=== PATIENT | male | born 1940 | race Caucasian/White ===

== ENCOUNTER → 2016-12-07 | Outpatient (CLI) | payer OTHER ==
[~2016-12-07] MED LIST: AMLO10TA2 PO; ATEN25TA PO; AZIT-14 PO; LISI40TA PO; MECL25TA2 PO; METH4TAB2 PO; OMNIPAQUE 350 MG/ML, 75ML BOTTLE ONE; ONDA4TAB10 PO
== END | disposition home or self-care (01) ==
LOC: CFH 08:43
PROVIDERS: ATTEND Specialist
DX: C44.699 Other specified malignant neoplasm of skin of left upper limb, including shoulder (principal); R91.8 Other nonspecific abnormal finding of lung field
CPT/HCPCS: 71260; Q9967

== ENCOUNTER → 2017-03-02 | Outpatient (CLI) | payer OTHER ==
[~2017-03-02] MED LIST changes: -AZIT-14 PO; +AZIT250T89 PO; +DICL50TA4 PO; -OMNIPAQUE 350 MG/ML, 75ML BOTTLE ONE
== END | disposition home or self-care (01) ==
LOC: RAD 15:08
PROVIDERS: ATTEND Family Medicine
DX: J98.11 Atelectasis (principal)
CPT/HCPCS: 71020

== ENCOUNTER → 2017-04-27 | Outpatient (CLI) | payer OTHER | END | disposition home or self-care (01) | LOC: WOUND 08:46 | PROVIDERS: ATTEND Physician Assistant | DX: S61.402D Unspecified open wound of left hand, subsequent encounter (principal); C44.699 Other specified malignant neoplasm of skin of left upper limb, including shoulder; I10 Essential (primary) hypertension; Z85.118 Personal history of other malignant neoplasm of bronchus and lung; Z87.891 Personal history of nicotine dependence; X58.XXXD Exposure to other specified factors, subsequent encounter | CPT/HCPCS: G0463; WOU0463 ==

== ENCOUNTER 2017-05-13 01:32 | Emergency (ER) | payer OTHER ==
[~2017-05-13] VITALS: Ht 172.7 cm; Wt 108.8 kg
[2017-05-13 01:35] VITALS: BP 181/100
== END 2017-05-13 03:01 | disposition home or self-care (01) ==
LOC: ED 02:38
DX: Z48.817 Encounter for surgical aftercare following surgery on the skin and subcutaneous tissue (principal); C44.90 Unspecified malignant neoplasm of skin, unspecified; I10 Essential (primary) hypertension; Z92.3 Personal history of irradiation
CPT/HCPCS: 99283

== ENCOUNTER 2017-05-30 08:55 | Emergency (ER) | payer OTHER ==
[~2017-05-30] VITALS: Ht 177.8 cm; Wt 105.0 kg
[2017-05-30 09:03] VITALS: BP 143/75
[2017-05-30] MEDS ORDERED: hydrOXyzine 50MG TABLET PO STA (09:21)
== END 2017-05-30 09:44 ==
LOC: ED 09:39
DX: L27.0 Generalized skin eruption due to drugs and medicaments taken internally (principal); T37.0X5A Adverse effect of sulfonamides, initial encounter; Y92.89 Other specified places as the place of occurrence of the external cause
CPT/HCPCS: 99283

== ENCOUNTER → 2017-06-22 | Outpatient (CLI) | payer OTHER | END | disposition home or self-care (01) | LOC: CFH 13:09 | PROVIDERS: ATTEND Internal Medicine Critical Care Medicine | DX: R91.8 Other nonspecific abnormal finding of lung field (principal); I70.0 Atherosclerosis of aorta; Q25.46 Tortuous aortic arch; N28.1 Cyst of kidney, acquired; I89.8 Other specified noninfective disorders of lymphatic vessels and lymph nodes | CPT/HCPCS: 71250 ==

== ENCOUNTER → 2017-10-06 | Outpatient (CLI) | payer OTHER ==
[~2017-10-06] MED LIST changes: +DOXY100C2 PO; +OMNIPAQUE 350 MG/ML, 75ML BOTTLE ONE
== END ==
LOC: CFH 10:03
PROVIDERS: ATTEND Internal Medicine Hematology & Oncology
DX: C78.02 Secondary malignant neoplasm of left lung (principal); R91.8 Other nonspecific abnormal finding of lung field; J98.11 Atelectasis
CPT/HCPCS: 71260; Q9967

== ENCOUNTER 2018-01-03 12:46 | Emergency (ER) | payer OTHER ==
[~2018-01-03] VITALS: Ht 177.8 cm; Wt 107.0 kg
[~2018-01-03 12:46] MED LIST changes: -OMNIPAQUE 350 MG/ML, 75ML BOTTLE ONE
[2018-01-03] MEDS ORDERED: MORPHINE SULFATE 4 MG/ML, 1ML ONE (13:10)
[2018-01-03] MEDS ORDERED: SODIUM CHLORIDE FLUSH 10ML SYR IVF ONE (13:30)
[2018-01-03] MEDS ORDERED: MORPHINE SULFATE 4 MG/ML, 1ML IVPush PRN (13:30)
[2018-01-03 13:37] LABS: BASOPHILS # (AUTO) 0.03 x10^3/uL (0-0.1); BASOPHILS % (AUTO) 1 % (0-1); EOSINOPHILS # (AUTO) 0.12 x10^3/uL (0-0.4); EOSINOPHILS % (AUTO) 2 % (1-7); LYMPHOCYTES # (AUTO) 0.97 x10^3/uL (1-3.4); LYMPHOCYTES % (AUTO) 16 % (22-44); MD NO; MEAN CORPUSCULAR HEMOGLOBIN 30.2 pg (27.5-34.5); MEAN CORPUSCULAR HGB CONC 33.2 g/dL (33.2-36.2); MONOCYTES # (AUTO) 0.59 x10^3/uL (0.2-0.8); MONOCYTES % (AUTO) 10 % (2-9); NEUTROPHILS # (AUTO) 4.36 x10^3/uL (1.8-6.8); NEUTROPHILS % (AUTO) 72 % (42-75); PLATELET COUNT 177 x10^3/uL (130-400); RED BLOOD COUNT 4.97 x10^6/uL (4.38-5.82); RED CELL DISTRIBUTION WIDTH 18.2 % (9.4-14.8)
[2018-01-03 13:46] LABS: ALBUMIN 3.5 g/dL (3.4-5.0); ANION GAP 8 mmol/L (5-15); CALCIUM 8.6 mg/dL (8.5-10.1); CHLORIDE 107 mmol/L (98-107); CREATININE 0.96 mg/dL (0.7-1.3)
[2018-01-03 14:12] VITALS: BP 150/88
== END 2018-01-03 14:23 | disposition home or self-care (01) ==
LOC: ED 14:17
DX: M79.622 Pain in left upper arm (principal); R07.89 Other chest pain; M54.12 Radiculopathy, cervical region; I11.9 Hypertensive heart disease without heart failure; Z90.49 Acquired absence of other specified parts of digestive tract; M54.14 Radiculopathy, thoracic region
CPT/HCPCS: 36415; 71045; 80048; 82040; 85025; 93005; 96374

== ENCOUNTER 2018-01-27 09:53 | Day surgery (SDC) | payer OTHER ==
[~2018-01-27] VITALS: Ht 177.8 cm; Wt 109.9 kg
[2018-01-27 10:42] VITALS: BP 168/80
[2018-01-27] MEDS ORDERED: LACTATED RINGERS 1,000 ML IV SCH (10:49)
[2018-01-27] MEDS ORDERED: ACETAMINOPHEN 500 MG TABLET ONE (10:57)
[2018-01-27] MEDS ORDERED: GABAPENTIN 300 MG CAPSULE ONE (10:57)
[2018-01-27] MEDS ORDERED: ONDANSETRON ODT 8 MG ONE (10:57)
[2018-01-27] MEDS ORDERED: GABAPENTIN 300 MG CAPSULE PO ONE (11:00)
[2018-01-27] MEDS ORDERED: ACETAMINOPHEN 500 MG TABLET PO ONE (11:00)
[2018-01-27] MEDS ORDERED: ONDANSETRON ODT 8 MG PO ONE (11:00)
[2018-01-27] MEDS ORDERED: BUPIVACAINE/PF 0.5% ONE (11:02)
[2018-01-27] MEDS ORDERED: EPINEPHRINE 1 MG/ML, 1ML ONE (11:02)
[2018-01-27] MEDS ORDERED: ISOSULFAN BLUE 10 MG/ML, 5ML IV ONE (11:02)
[2018-01-27 11:31] LABS: INTERNATIONAL NORMALIZED RATIO 1.07 (0.93-1.1); PROTHROMBIN TIME 11.1 Seconds (9.6-11.5)
[2018-01-27] MEDS ORDERED: SUCCINYLCHOLINE 20 MG/ML, 10ML ONE (11:50)
[2018-01-27] MEDS ORDERED: CLINDAMYCIN 150 MG/ML, 6ML ONE (11:51)
[2018-01-27] MEDS ORDERED: FENTANYL PF 100 MCG/2ML ONE (11:52)
[2018-01-27] MEDS ORDERED: LIDOCAINE GEL 2%, 5ML ONE (11:55)
[2018-01-27] MEDS ORDERED: CEFAZOLIN 1,000 MG ONE (12:27)
[2018-01-27] MEDS ORDERED: PROPOFOL 10 MG/ML, 20ML ONE (12:27)
[2018-01-27] MEDS ORDERED: DEXAMETHASONE 4 MG/ML, 1ML ONE (12:27)
[2018-01-27] MEDS ORDERED: MEPERIDINE/PF 50 MG/ML ONE (12:27)
[2018-01-27] MEDS ORDERED: hydrALAzine 20 MG/ML, 1ML IV PRN (12:30)
[2018-01-27] MEDS ORDERED: MEPERIDINE/PF 25MG/0.5ML IVPush PRN (12:30)
[2018-01-27] MEDS ORDERED: METOPROLOL 1 MG/ML, 5ML IV PRN (12:30)
[2018-01-27] MEDS ORDERED: DIAZEPAM 5 MG/ML, 2ML IVPush PRN (12:30)
[2018-01-27] MEDS ORDERED: OXYcodone 5 MG/5 ML ORAL.SOL UDC PO PRN (12:30)
[2018-01-27] MEDS ORDERED: MIDAZOLAM 1 MG/ML, 2ML IV PRN (12:30)
[2018-01-27] MEDS ORDERED: EPHEDRINE 50 MG/ML, 1ML IM PRN (12:30)
[2018-01-27] MEDS ORDERED: ONDANSETRON ODT 8 MG PO PRN (12:30)
[2018-01-27] MEDS ORDERED: LORazepam 2 MG/ML, 1ML IVPush PRN (12:30)
[2018-01-27] MEDS ORDERED: PROMETHAZINE 25 MG/ML, 1ML IV PRN (12:30)
[2018-01-27] MEDS ORDERED: MORPHINE SULFATE 4 MG/ML, 1ML IVPush PRN (12:30)
[2018-01-27] MEDS ORDERED: PROMETHAZINE 25 MG SUPP PR PRN (12:30)
[2018-01-27] MEDS ORDERED: ALBUTEROL/IPRATROPIUM 2.5MG/0.5MG, 3 ML NPPB PRN (12:30)
[2018-01-27] MEDS ORDERED: FENTANYL PF 100 MCG/2ML IV PRN (12:30)
== END 2018-01-27 18:10 | disposition home or self-care (01) ==
LOC: OUT 09:53
PROVIDERS: ATTEND Surgery
DX: M79.89 Other specified soft tissue disorders (principal); I27.20 Pulmonary hypertension, unspecified; G47.33 Obstructive sleep apnea (adult) (pediatric); Z88.1 Allergy status to other antibiotic agents; Z88.8 Allergy status to other drugs, medicaments and biological substances; Z98.890 Other specified postprocedural states; Z87.891 Personal history of nicotine dependence
CPT/HCPCS: 21556; 36415; 85610; 88307; J0171; J0330; J1100; J2175; J2704; J3010; J3490; J7120; Q0162; J0690

== ENCOUNTER → 2018-04-11 | Outpatient (CLI) | payer OTHER | END | disposition home or self-care (01) | LOC: CFH 08:31 | PROVIDERS: ATTEND Nurse Practitioner Family | DX: R91.8 Other nonspecific abnormal finding of lung field (principal); R59.0 Localized enlarged lymph nodes; I25.10 Atherosclerotic heart disease of native coronary artery without angina pectoris; I51.7 Cardiomegaly | CPT/HCPCS: 71250 ==

== ENCOUNTER → 2018-04-11 | Outpatient (CLI) | payer OTHER | END | disposition home or self-care (01) | LOC: ROC 13:31 | PROVIDERS: ATTEND Radiology Radiation Oncology | DX: C44.601 Unspecified malignant neoplasm of skin of unspecified upper limb, including shoulder (principal) | CPT/HCPCS: 99212; G0463 ==

== ENCOUNTER 2018-04-30 06:28 | Emergency (ER) | payer OTHER ==
[~2018-04-30] VITALS: Ht 177.8 cm; Wt 108.1 kg
[2018-04-30] MEDS ORDERED: MICROFIBRILLAR COLLAGEN 1 GM TP ONE (07:31)
[2018-04-30 09:20] VITALS: BP 178/88
== END 2018-04-30 09:23 | disposition home or self-care (01) ==
LOC: ED 07:01
DX: C76.1 Malignant neoplasm of thorax (principal); I10 Essential (primary) hypertension; Z88.0 Allergy status to penicillin
CPT/HCPCS: 99283

== ENCOUNTER 2018-05-29 16:09 | Emergency (ER) | payer OTHER ==
[~2018-05-29] VITALS: Ht 177.8 cm; Wt 108.0 kg
[~2018-05-29 16:09] MED LIST changes: -AMLO10TA2 PO; +AMLO10TA6 PO
[2018-05-29] MEDS ORDERED: MICROFIBRILLAR COLLAGEN 1 GM TP ONE ×2 (16:42→17:00)
[2018-05-29 17:46] VITALS: BP 149/75
== END 2018-05-29 18:02 | disposition home or self-care (01) ==
LOC: ED 17:45
DX: L76.22 Postprocedural hemorrhage of skin and subcutaneous tissue following other procedure (principal); I10 Essential (primary) hypertension; Z87.891 Personal history of nicotine dependence; Z90.89 Acquired absence of other organs
CPT/HCPCS: 99283

== ENCOUNTER 2018-06-21 20:06 | Emergency (ER) | payer OTHER ==
[~2018-06-21] VITALS: Ht 177.8 cm; Wt 100.0 kg
[2018-06-21] MEDS ORDERED: MICROFIBRILLAR COLLAGEN 1 GM TP ONE ×2 (20:36→21:30)
[2018-06-21 20:40] LABS: BASOPHILS % (AUTO) 1 % (0-1); EOSINOPHILS # (AUTO) 0.12 x10^3/uL (0-0.4); EOSINOPHILS % (AUTO) 1 % (1-7); LYMPHOCYTES # (AUTO) 0.99 x10^3/uL (1-3.4); LYMPHOCYTES % (AUTO) 9 % (22-44); MD NO; MEAN CORPUSCULAR HEMOGLOBIN 30.7 pg (27.5-34.5); MEAN CORPUSCULAR VOLUME 90.2 fL (81-97); MEAN PLATELET VOLUME 6.8 fL (7.4-10.4); MONOCYTES % (AUTO) 9 % (2-9); NEUTROPHILS % (AUTO) 80 % (42-75); PLATELET COUNT 256 x10^3/uL (130-400); RED BLOOD COUNT 3.93 x10^6/uL (4.38-5.82); RED CELL DISTRIBUTION WIDTH 15.2 % (9.4-14.8)
[2018-06-21 20:48] LABS: INTERNATIONAL NORMALIZED RATIO 1.09 (0.93-1.1); PROTHROMBIN TIME 11.2 Seconds (9.6-11.5)
[2018-06-21 20:49] LABS: ALANINE AMINOTRANSFERASE 14 U/L (12-78); ALBUMIN 2.2 g/dL (3.4-5.0); ANION GAP 8 mmol/L (5-15); CALCIUM 8.2 mg/dL (8.5-10.1); CHLORIDE 107 mmol/L (98-107); CREATININE 1.37 mg/dL (0.7-1.3)
[2018-06-21 20:51] LABS: ALKALINE PHOSPHATASE 59 U/L (45-117); BILIRUBIN,TOTAL 0.3 mg/dL (0.2-1.0); TOTAL PROTEIN 6.7 g/dL (6.4-8.2)
[2018-06-21 23:25] VITALS: BP 121/71
== END 2018-06-21 23:27 | disposition home or self-care (01) ==
LOC: ED 23:20
DX: R58 Hemorrhage, not elsewhere classified (principal); I10 Essential (primary) hypertension; R79.1 Abnormal coagulation profile; Z90.89 Acquired absence of other organs; Z88.0 Allergy status to penicillin; Z88.2 Allergy status to sulfonamides; Z88.1 Allergy status to other antibiotic agents; Z85.828 Personal history of other malignant neoplasm of skin
CPT/HCPCS: 36415; 80053; 85025; 85610; 85730; 99284

== ENCOUNTER → 2018-07-11 | Outpatient (CLI) | payer OTHER ==
[~2018-07-11] MED LIST changes: +OMNIPAQUE 350 MG/ML, 100ML BOTTLE ONE
== END | disposition home or self-care (01) ==
LOC: RAD 10:14
PROVIDERS: ATTEND Internal Medicine Hematology & Oncology
DX: R22.30 Localized swelling, mass and lump, unspecified upper limb (principal)
CPT/HCPCS: 71260; 74177; Q9967